=== PATIENT | female | born 1950 | race Caucasian/White ===

== ENCOUNTER 2018-08-17 07:51 | Outpatient (CLI) | payer MEDICARE ==
[2018-08-17] MEDS ORDERED: IOVERSOL 320 100 ML VIAL IVP ONE ×2 (08:25→08:51)
--- NOTE | 2018-08-17 10:47 | CT Report ---
Reason: ASYMPTOMATIC MICROSCOPIC Procedure Date: 08/17/2018 Accession Number: [id number] / [id number] Procedure: CT - IVP CPT Code: FULL RESULT: EXAM: CT ABDOMEN AND PELVIS WITHOUT AND WITH CONTRAST (CT IVP) EXAM DATE: 08/17/2018 08:58 AM. CLINICAL HISTORY: Asymptomatic microscopic hematuria. COMPARISONS: None. TECHNIQUE: Routine helical imaging was performed through the kidneys, ureters and bladder in the precontrast, postcontrast and delayed phase. IV Contrast: Optiray 320, 100 mL. Reconstructions: Coronal and sagittal. In accordance with CT protocol optimization, one or more of the following dose reduction techniques were utilized for this exam: automated exposure control, adjustment of mA and/or KV based on patient size, or use of iterative reconstructive technique. FINDINGS: Lung Bases: Unremarkable. Right Kidney/Ureter: No stones, hydronephrosis, or masses. Left Kidney/Ureter: No stones, hydronephrosis, or masses. Other Solid Organs: Liver demonstrates fatty infiltration with focal sparing in the gallbladder fossa region. A 1.8 cm focus of hyperenhancement in the right lobe of the liver on image 26 series 6 is peripheral and felt to represent either focal fatty sparing or a transient hepatic attenuation difference. The spleen, pancreas, gallbladder, and adrenal glands are unremarkable.The bile ducts are unremarkable. Peritoneal Cavity/Bowel: Normal. No free fluid, free air or adenopathy. No masses. Bowel loops are unremarkable. Pelvic Organs: No bladder stones, obstruction or masses. The visualized pelvic organs are unremarkable. Vasculature: Mild atherosclerotic disease. Bones: Normal. Other: None. IMPRESSION: Fatty liver. No urinary tract masses, stones or obstruction. RADIA
== END 2018-08-17 07:52 | disposition home or self-care (01) ==
LOC: LAB 07:51 → DI 07:52
PROVIDERS: ATTEND Urology
DX: N30.11 Interstitial cystitis (chronic) with hematuria (principal); R31.21 Asymptomatic microscopic hematuria; K76.0 Fatty (change of) liver, not elsewhere classified
CPT/HCPCS: 36415; 74178; 82565; Q9967

== ENCOUNTER 2018-11-13 00:05 | Outpatient (CLI) | payer MEDICARE, OTHER ==
--- NOTE | 2018-11-13 01:44 | Ultrasound Report ---
Reason: FOREIGN BODY OF FOOT Procedure Date: 11/13/2018 Accession Number: [id number] / [id number] Procedure: US - Ext Limited Non Vascular CPT Code: FULL RESULT: EXAM: LEFT LOWER EXTREMITY ULTRASOUND - LIMITED EXAM DATE: 11/13/2018 12:16 AM. CLINICAL HISTORY: FOREIGN BODY OF FOOT. COMPARISON: None. TECHNIQUE: Real-time scanning was performed with static images obtained. FINDINGS: Scanning of the plantar surface of the left foot was performed, directed to the palpable lump identified by the patient. At this site, there is a 2 mm echogenic linear structure, compatible with a foreign body. No definite abscess is appreciated. Induration of the subcutaneous fat is noted. IMPRESSION: 2 mm linear echogenic structure at the site of palpable abnormality identified by the patient, compatible with a tiny foreign body. No evident abscess. RADIA
== END 2018-11-13 00:06 | disposition home or self-care (01) ==
LOC: DI 00:05
PROVIDERS: ATTEND Internal Medicine
DX: S99.821A Other specified injuries of right foot, initial encounter (principal); R22.42 Localized swelling, mass and lump, left lower limb
CPT/HCPCS: 76882

== ENCOUNTER 2019-12-29 13:16 | Outpatient (CLI) | payer MEDICARE, OTHER | END 2019-12-29 13:17 | disposition home or self-care (01) | LOC: DI 13:16 | PROVIDERS: ATTEND Registered Nurse | DX: R06.09 Other forms of dyspnea (principal) | CPT/HCPCS: 93306 ==

== ENCOUNTER 2021-05-27 08:31 | Emergency (ER) | payer MEDICARE, OTHER ==
[2021-05-27] MEDS ORDERED: oxyCODONE 5 MG TABLET PO STA ×2 (08:50→10:06)
--- NOTE | 2021-05-27 09:03 | ED Physician Documentation ---
PD HPI LOWER EXT INJURY - Stated complaint Stated Complaint: FALL, LEFT KNEE PX - Chief complaint Chief Complaint: Ext Problem - History obtained from History obtained from: Patient - History of Present Illness PD HPI LOW EXT INJURY LOCATION: Left, Knee Type of injury: Fall Where injury occurred: Street Timing - onset: Last night Timing - duration: Hours (8) Pain level max: 9 Pain level now: 7 Improved by: Nothing Worsened by: Moving, Palpating Associated symptoms: Swelling. No: Weakness, Numbness, Tingling, Discolored Contributing factors: No: Anticoagulated - Additional information Additional information: Patient is a 70-year-old female who presents to the emergency department stating that she was out in the dark last night when she tripped and fell, injuring her left knee. She states increasing pain with walking. Worse with movement, nothing makes it better. She has had a knee replacement on the right side. She states that she thinks she struck her head, but no loss of consciousness, no vomiting, no headache, no neurological deficits. Currently the only pain she has is in the left knee. Review of Systems Constitutional: denies: Fever, Chills GI: denies: Vomiting, Diarrhea Skin: denies: Rash Musculoskeletal: denies: Neck pain, Back pain Neurologic: denies: Focal weakness, Numbness, Seizure, Confused, Headache, LOC PD PAST MEDICAL HISTORY - Past Medical History Past Medical History: Yes Psych: Depression - Present Medications Home Medications: Ambulatory Orders Medication Instructions Recorded Confirmed Oxycodone HCl/Acetaminophen 1 - 2 each PO Q6H PRN #14 tablet 05/27/21 [Percocet 5-325 mg Tablet] - Allergies Allergies/Adverse Reactions: Allergies Allergy/AdvReac Type Severity Reaction Status Date / Time No Known Drug Allergies Allergy Verified 05/27/21 08:40 - Living Situation Living Situation: reports: With family Living Arrangement: reports: At home PD ED PE NORMAL - Vitals Vital signs reviewed: Yes - General General: Alert and oriented X 3, No acute distress, Well developed/nourished - HEENT HEENT: Atraumatic, PERRL, Moist mucous membranes, Pharynx benign - Neck Neck: Supple, no meningeal sign, No bony TTP - Cardiac Cardiac: RRR, Strong equal pulses - Respiratory Respiratory: No respiratory distress, Clear bilaterally - Abdomen Abdomen: Soft, Non tender, Non distended - Back Back: No spinal TTP - Derm Derm: Warm and dry - Extremities Extremities: Other (Tender to palpation over the left knee, diffuse. Limited range of motion secondary to pain. Palpable effusion. Neurovascularly intact. Unable to perform a ligamentous exam secondary to pain.) - Neuro Neuro: Alert and oriented X 3 - Psych Psych: Normal mood, Normal affect Results - Vitals Vitals: Vital Signs - 24 hr 05/27/21 05/27/21 08:33 10:34 Temperature 37.4 C Heart Rate 73 73 Respiratory 16 16 Rate Blood Pressure 136/79 H 134/76 H O2 Saturation 99 96 Oxygen O2 Source Room air - Rads (name of study) Left knee x-ray Radiology: Final report received, EMP read contemporaneously, See rad report (No acute bony abnormality. Moderate-sized joint effusion) PD MEDICAL DECISION MAKING - ED course Complexity details: reviewed results, re-evaluated patient, considered differential, d/w patient ED course: 70-year-old female with a left knee joint effusion. Placed in a articulating knee brace, locked from 10 to 30 degrees. Has crutches. We will have her follow-up with her doctor for repeat evaluation within 1 week. Make her nonweightbearing. No evidence of tibial plateau fracture. She will need ligamentous testing when the swelling and pain have decreased. I am prescribing a short course of short-acting opioid pain medication for this patient. 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 I have discussed that the opioids are for short term therapy only, and will not be refilled from the ED. patient counseled regarding signs and symptoms for which I believe and urgent re-evaluation would be necessary. Patient with good understanding of and agreement to plan and is comfortable going home at this time This document was made in part using voice recognition software. While efforts are made to proofread this document, sound alike and grammatical errors may occur. Departure - Departure Disposition: 01 Home, Self Care Clinical Impression: Knee effusion, left Condition: Good Instructions: ED Effusion Knee Follow-Up: Nico Noel MD [Primary Care Provider] - Within 1 week [facility] [Provider Group] Prescriptions: Oxycodone HCl/Acetaminophen [Percocet 5-325 mg Tablet] 1 - 2 each PO Q6H PRN #14 tablet PRN Reason: pain Comments: Use the knee brace until your effusion has resolved. You can remove the brace and gently move your knee. Return if you worsen. Your prescriptions were sent to [facility] in [place]. It is important that you see your doctor in about 1 week for repeat evaluation of your knee. I am prescribing a short course of narcotic pain medication for you. These are potentially dangerous and addictive medications that should be used carefully. These medications may constipate you. Take an nxur-eke-zrmncoz stool softener (docusate) twice daily with plenty of water while taking these medications. If you go 24 hours without a bowel movement, take gnlr-ion-egnpesb miralax, per package instructions. Do not drink or drive while taking these medications. If you received narcotic or sedating medications while in the emergency department, do not drive for 24 hours. Store this medication in a safe, secure place and out of reach of children. It is a violation of federal law to give or sell this medication to another person or to use in a manner other than prescribed. The ED will not refill narcotic prescriptions, including prescriptions lost or stolen. To dispose of unwanted medications: 1. [facility] [address] in [place] has a medication drop box. They accept prescription medications (in pill form) Friday through Friday 9:00 a.m. to 5:00 p.m. 2. The [facility] [employer] accepts prescription medications (in pill form only) for disposal year round. Call for more information. 3. Contact the [facility] for the next [facility] sponsored prescription drug collection event. , [phone], or [phone];
--- NOTE | 2021-05-27 09:47 | XRAY Report ---
PROCEDURE: Knee 3 View LT INDICATIONS: fall, knee pain TECHNIQUE: 3 views of the left knee(s) were acquired. COMPARISON: None. FINDINGS: Bones: No fractures or dislocations. No suspicious bony lesions. Mild tricompartment degenerative spurring. Soft tissues: Moderate joint effusion. Small quadriceps insertion enthesophyte at the superior pole o f the patella. IMPRESSION: No acute fracture or dislocation. Moderate joint effusion. Mild tricompartmental osteoarthritis. Reviewed by: Camron Ware DO on 05/27/2021 8:46 AM MARCELLUS Approved by: Camron Ware DO on 05/27/2021 8:46 AM MARCELLUS Station ID: [id number]
[2021-05-27 10:35] VITALS: BP 134/76
== END 2021-05-27 10:51 | disposition home or self-care (01) ==
LOC: ED 08:31
DX: M25.462 Effusion, left knee (principal)
CPT/HCPCS: 73562; 99283; 99284; A9270

== ENCOUNTER 2021-06-04 07:25 | Outpatient (CLI) | payer MEDICARE, OTHER ==
--- NOTE | 2021-06-04 08:59 | MRI Report ---
PROCEDURE: Knee LT W/O INDICATIONS: KNEE--fall knee injury 05/27 TECHNIQUE: Noncontrast sagittal PD fast spin echo and T2 fast spin echo with fat saturation, sagittal 3-D gradie nt sequence with fat saturation; coronal T1 spin echo and PD fast spin echo with fat saturation, and axial PD fast spin echo with fat saturation through the knee. COMPARISON: None. FINDINGS: Menisci: Medial meniscus: Intact. Lateral meniscus: Lateral meniscal tear involving the body and posterior horn. There is truncation of the free margin of the posterior horn, and abnormal signal in the body extending to the undersurface as well as slight partial extrusion. Cruciate ligaments: Anterior cruciate ligament: Intact. Posterior cruciate ligament: Intact although T2 hyperintense intrasubstance signal changes suggestive of low-grade sprain. Medial structures: Medial collateral ligament: High-grade versus complete rupture of the medial collateral ligament. Adj acent soft tissue edema. Semimembranosus tendon: Intact. Pes anserinus tendons: Intact. Bursal fluid: No bursal fluid. Lateral structures: Lateral collateral ligament appears grossly intact. Biceps femoris tendon appears intact. Iliotibial band within normal limits. Popliteus tendon within normal limits. Anterior structures: Mild patellar tendinopathy, with prepatellar and superficial infrapatellar edema. The quadriceps tendon appears intact. Medial and lateral patellofemoral ligaments appear grossly intact. Patellar alignment is normal. Hoffa's fat pad unremarkable. Bones and cartilage: Bones: Subacute fracture involving the tibial eminence, with prominent curvilinear fracture line seen on image 22/901. Minimal if any depressed appearance of the dominant fracture fragment. There is mil d marrow edema. Medial compartment: Full-thickness fissuring of the tibial articular cartilage. There is diffuse surf yun fraying of the femoral cartilage Lateral compartment: There is a full-thickness chondral loss involving the femoral cartilage. There i s diffuse partial thickness loss of the tibial cartilage. Patellofemoral compartment: Partial thickness loss of the central femoral trochlear cartilage. Joint space: Moderate to large joint effusion. Wilson's cyst which measures approximately 7 cm in the cephalocaudad dimension. There is slight partia l rupture. No specific evidence of loose body identified. IMPRESSION: Subacute appearing essentially nondisplaced fracture of the tibial eminence. Low-grade sprain of the PCL as above. High-grade versus complete rupture of the medial collateral ligament with associated soft tissue refugio a. Lateral meniscal tear involving the body posterior horn with partial extrusion. Large joint effusion Degenerative changes as above. Wilson's cyst with slight partial rupture. Reviewed by: German Raymundo MD on 06/04/2021 8:58 AM PST Approved by: German Raymundo MD on 06/04/2021 8:58 AM PST Station ID: [id number]
== END 2021-06-04 07:26 | disposition home or self-care (01) ==
LOC: DI 07:25
PROVIDERS: ATTEND Family Medicine
DX: S82.115A Nondisplaced fracture of left tibial spine, initial encounter for closed fracture (principal); S83.522A Sprain of posterior cruciate ligament of left knee, initial encounter; S83.412A Sprain of medial collateral ligament of left knee, initial encounter; S83.282A Other tear of lateral meniscus, current injury, left knee, initial encounter; M25.462 Effusion, left knee; M17.12 Unilateral primary osteoarthritis, left knee; M66.0 Rupture of popliteal cyst

== ENCOUNTER 2022-07-09 12:56 | Outpatient (CLI) | payer MEDICARE, OTHER ==
--- NOTE | 2022-07-16 10:46 | Mammography Report ---
BILATERAL DIGITAL SCREENING MAMMOGRAM 3D/2D: 07/09/2022 CLINICAL: Routine screening. No prior exams were available for comparison. Both breasts are almost entirely fatty (category a/<25% glandular tissue). There are benign calcifications in the right breast. No significant masses, calcifications, or other findings are seen in either breast. IMPRESSION: BENIGN There is no mammographic evidence of malignancy. A 1 year screening mammogram is recommended. Based on the Tyrer Cuzick model (a risk assessment model) the patients lifetime risk is 2.0% and her 10 year risk is 1.6%. According to the ACR, ACS, and NCCN guidelines, an annual breast MRI exam gera g with mammogram is recommended if the patients lifetime risk is 20% or greater. This exam was interpreted at Station ID: [id number]. NOTE: For mammograms, a report in lay terms will be sent to the patient. Approximately 15% of breast malignancies will not be visualized mammographically. In the management of a palpable breast mass, a negative mammogram must not discourage biopsy of a clinically suspicious lesion. Electronically Signed By: Adrián Wright M.D. acr/penrad:07/15/2022 13:06:36 ACR BI-RADS Category 2: Benign Finding(s) 3342F PARENCHYMAL PATTERN: (F) - The breast(s) demonstrate(s) diffuse fatty replacement. BI-RADS CATEGORY: (2) - 2 RECOMMENDATION: (ANNUAL) - Recommend routine annual screening mammography. [id number] 1 year screening LATERALITY: (B)
== END 2022-07-09 12:57 | disposition home or self-care (01) ==
LOC: DI 12:56
PROVIDERS: ATTEND Nurse Practitioner Family
DX: Z12.31 Encounter for screening mammogram for malignant neoplasm of breast (principal)

== ENCOUNTER 2022-07-09 14:30 | Outpatient (CLI) | payer MEDICARE, OTHER ==
--- NOTE | 2022-07-09 20:49 | DEXA Report ---
PROCEDURE: Dexa Spine and/or Hip INDICATIONS: POST MENOPAUSAL TECHNIQUE: Dual energy x-ray absorptiometry (DXA) was performed on a Moka System. Regions measur ed are the AP Spine, femoral neck, and if needed forearm. COMPARISON: None. FINDINGS: Lumbar Spine: Bone Mineral Density 1.265 g/cm/cm,T score 0.7, Left Femoral Neck: Bone Mineral Density 0.910 g/cm/cm, T score -0.9, Left Hip: Bone Mineral Density 1.043 g/cm/cm,T score 0.3, (T score greater or equal to -1.0: NORMAL) (T score from -1.1 to -2.4: OSTEOPENIA) (T score less than or equal to -2.5 to: OSTEOPOROSIS) Impression: Normal bone mineral density Patients with diagnosis of osteoporosis or osteopenia should have regular bone mineral density assess ment. For those eligible for Medicare, routine testing is allowed once every 2 years. Testing frequ ency can be increased for patients who have rapidly progressing disease or for those who are receivin g medical therapy to restore bone mass. Reviewed by: Bakari Coyne MD on 07/09/2022 7:48 PM AK Approved by: Bakari Coyne MD on 07/09/2022 7:48 PM AKST Station ID: [id number]
== END 2022-07-09 23:59 | disposition home or self-care (01) ==
LOC: DI 14:30
PROVIDERS: ATTEND Nurse Practitioner Family
DX: Z78.0 Asymptomatic menopausal state (principal)

== ENCOUNTER 2022-10-03 15:23 | Outpatient (CLI) | payer MEDICARE, OTHER ==
--- NOTE | 2022-10-03 16:02 | XRAY Report ---
PROCEDURE: Wrist 3 View LT INDICATIONS: LEFT WRIST PAIN TECHNIQUE: 3 views of the wrist were acquired. COMPARISON: None FINDINGS: Bones: No fractures or dislocations. No suspicious bony lesions. First CMC joint space narrowing w ith associated osteophytosis and sclerosis. Scaphoid view: Unremarkable. Soft tissues: No suspicious soft tissue calcifications. IMPRESSION: Moderate first CMC osteoarthritis. Reviewed by: Jaxon Keller on 10/03/2022 4:01 PM STEPHANIE Approved by: Jaxon Keller on 10/03/2022 4:01 PM [facility] Station ID: [id number]
== END 2022-10-03 23:59 | disposition home or self-care (01) ==
LOC: DI.S 15:23
PROVIDERS: ATTEND Nurse Practitioner Family
DX: M18.12 Unilateral primary osteoarthritis of first carpometacarpal joint, left hand (principal)

== ENCOUNTER 2022-10-18 11:06 | Outpatient (CLI) | payer MEDICARE, OTHER ==
--- NOTE | 2022-10-18 15:36 | XRAY Report ---
PROCEDURE: Toe(s) RT INDICATIONS: PAIN IN RIGHT TOES TECHNIQUE: 3 views of the fifth toe(s) acquired. COMPARISON: None FINDINGS: Bones: There is a minimally displaced fracture through the shaft of the fifth proximal phalanx. Soft tissues: No suspicious soft tissue densities. IMPRESSION: Minimally displaced fracture through the shaft of the fifth proximal phalanx. Reviewed by: Jaxon Keller on 10/18/2022 3:34 PM PDT Approved by: Jaxon Keller on 10/18/2022 3:34 PM PDT Station ID: [id number]
== END 2022-10-18 11:07 | disposition home or self-care (01) ==
LOC: DI 11:06
PROVIDERS: ATTEND Physician Assistant
DX: S92.511A Displaced fracture of proximal phalanx of right lesser toe(s), initial encounter for closed fracture (principal)

== ENCOUNTER 2023-12-18 14:31 | Outpatient (CLI) | payer MEDICARE, OTHER | END 2023-12-18 14:32 | disposition home or self-care (01) | LOC: LAB.S 14:31 | PROVIDERS: ATTEND Registered Nurse | DX: R30.0 Dysuria (principal); R68.83 Chills (without fever); R42 Dizziness and giddiness; N12 Tubulo-interstitial nephritis, not specified as acute or chronic | CPT/HCPCS: 87086 ==

== ENCOUNTER 2024-01-02 07:00 | Outpatient (CLI) | payer MEDICARE, OTHER ==
[2024-01-02 20:31] LABS: BILIRUBIN,URINE NEGATIVE (NEGATIVE); GLUCOSE, URINE (UA) NEGATIVE (NEGATIVE); KETONES,URINE (UA) NEGATIVE (NEGATIVE); LEUKOCYTE ESTERASE, URINE NEGATIVE (NEGATIVE); NITRITE,URINE NEGATIVE (NEGATIVE); OCCULT BLOOD,URINE TRACE-INTA (NEGATIVE); PROTEIN,URINE NEGATIVE (NEGATIVE); UROBILINOGEN,URINE 0.2 (NORMAL) E.U./dL (NORMAL)
[2024-01-02 21:24] LABS: BACTERIA,URINE Rare /HPF (None Seen); CLARITY,URINE HAZY (CLEAR); RBC,URINE 0-5 /HPF (0-5); SQUAMOUS EPITHELIAL CELL,UR RARE Squamous (<= Few); WBC,URINE 0-3 /HPF (0-5)
== END 2024-01-02 23:59 | disposition home or self-care (01) ==
LOC: LAB.S 07:00
PROVIDERS: ATTEND Internal Medicine
DX: R10.30 Lower abdominal pain, unspecified (principal)
CPT/HCPCS: 81001; 87086

== ENCOUNTER 2024-03-12 08:00 | Outpatient (CLI) | payer MEDICARE, OTHER ==
[2024-03-12 16:21] LABS: BILIRUBIN,URINE NEGATIVE (NEGATIVE); GLUCOSE, URINE (UA) NEGATIVE (NEGATIVE); KETONES,URINE (UA) NEGATIVE (NEGATIVE); LEUKOCYTE ESTERASE, URINE NEGATIVE (NEGATIVE); NITRITE,URINE NEGATIVE (NEGATIVE); OCCULT BLOOD,URINE MODERATE (NEGATIVE); PROTEIN,URINE NEGATIVE (NEGATIVE); UROBILINOGEN,URINE 0.2 (NORMAL) E.U./dL (NORMAL)
[2024-03-12 16:37] LABS: CLARITY,URINE CLOUDY (CLEAR)
[2024-03-12 17:16] LABS: WBC,URINE 0-3 /HPF (0-5)
[2024-03-12 17:17] LABS: BACTERIA,URINE None Seen /HPF (None Seen); SQUAMOUS EPITHELIAL CELL,UR NONE SEEN (<= Few)
== END 2024-03-12 23:59 | disposition home or self-care (01) ==
LOC: LAB 08:00
PROVIDERS: ATTEND Urology
DX: R31.9 Hematuria, unspecified (principal)
CPT/HCPCS: 81001; 87086

== ENCOUNTER 2024-03-23 10:20 | Outpatient (CLI) | payer MEDICARE, OTHER ==
--- NOTE | 2024-03-23 10:59 | XRAY Report ---
PROCEDURE: Chest 2V INDICATIONS: CHRONIC COUGH TECHNIQUE: 2 views of the chest were acquired. COMPARISON: None. FINDINGS: Surgical changes and devices: None. Lungs and pleura: No pleural effusions or pneumothorax. Lungs are clear. Mediastinum: Mediastinal contours appear normal. Heart size is normal. Bones and chest wall: No suspicious bony lesions. Overlying soft tissues appear unremarkable. IMPRESSION: No acute cardiopulmonary process. Reviewed by: Jules Hussein MD on 03/23/2024 10:57 AM PDT Approved by: Jules Hussein MD on 03/23/2024 10:57 AM PDT Station ID: [id number]
== END 2024-03-23 10:21 | disposition home or self-care (01) ==
LOC: DI.S 10:20
DX: R05.3 Chronic cough (principal)